=== PATIENT | male | born 1975 | race Caucasian/White ===

== ENCOUNTER 2016-09-08 12:01 | Emergency (ER) | payer SELFPAY ==
[~2016-09-08] VITALS: Ht 190.5 cm; Wt 130.0 kg
[~2016-09-08 12:01] MED LIST: IBUP800T23 PO; PERC5TAB12 PO; ROBA750T3 PO
[2016-09-08 12:07] VITALS: BP 148/100; PULSE 94; RESP 18; TEMP 97.6; O2SAT 96
--- NOTE | 2016-09-08 12:33 | PD ---
HPI Chief Complaint: Headache Time Seen by Provider: 12:21 Travel History International Travel<30 days: No Contact w/Intl Traveler<30days: No Traveled to known affect area: No History of Present Illness HPI This patient complains of headache. He does have history of migraines. He says he had a migraine about a week ago but that seems to largely resolved. His chief complaint today is pain that's on the left side of his head above the ear. It's really centered around the left mastoid area. No injury or trauma. No fever or vomiting. No neurologic complaint beyond headache. Does not feel like his typical migraine. No neck pain. No alleviating factors. Duration 3 days PFSH Past Medical History Diminished Hearing: No Past Surgical History Oral Surgery: Yes (WISDOM TEETH REMOVED MAY 07, 2006) Social History Alcohol Use: Yes (OCCAS) Tobacco Use: Yes (1 PACK DAILY) Substance Use: No Allergies-Medications (Allergen,Severity, Reaction): Coded Allergies: No Known Allergies (Verified , 09/08/16) Reported Meds & Prescriptions Reported Meds & Active Scripts Active Reported Oxycodone-Acetaminophen 5-325 mg Tab 1 Tab PO Q6H PRN Review of Systems General / Constitutional: No: Fever Eyes: No: Visual changes HENT: Positive: Headaches Cardiovascular: No: Chest Pain or Discomfort Respiratory: No: Shortness of Breath Gastrointestinal: No: Abdominal Pain Genitourinary: No: Dysuria Musculoskeletal: No: Pain Skin: No Rash Neurologic: Positive: Headache, No: Weakness Psychiatric: No: Depression Endocrine: No: Polydipsia Hematologic/Lymphatic: No: Easy Bruising Physical Exam Narrative GENERAL: Well-nourished, well-developed patient in no apparent distress. SKIN: Focused skin assessment reveals no rash and nodules. Skin is Warm and dry. HEAD: Atraumatic. Normocephalic. No tenderness of the mastoid. No redness or fluctuance or scalp rash noted. Left TM and pinna normal EYES: Pupils equal and round. No scleral icterus. No injection or drainage. ENT: No nasal bleeding or discharge. Mucous membranes pink and moist. NECK: Trachea midline. No JVD. No midline tenderness or meningeal signs CARDIOVASCULAR: Regular rate and rhythm. No murmur appreciated. RESPIRATORY: No accessory muscle use. Clear to auscultation. Breath sounds equal bilaterally. GASTROINTESTINAL: Abdomen soft, non-tender, nondistended. Hepatic and splenic margins not palpable. MUSCULOSKELETAL: No obvious deformities. No clubbing. No cyanosis. No edema. NEUROLOGICAL: Awake and alert. No obvious cranial nerve deficits. Motor grossly within normal limits. Normal speech. PSYCHIATRIC: Appropriate mood and affect; insight and judgment normal. Data Data Last Documented VS Vital Signs Date Time Temp Pulse Resp B/P Pulse Ox O2 Delivery O2 Flow Rate FiO2 09/08/16 12:29 16 97 Room Air 09/08/16 12:07 97.6 94 148/[address] Brain W/O Iv Contrast(Rout) (09/08/16 ) [facility] Medical Decision Making Medical Screen Exam Complete: Yes Emergency Medical Condition: Yes Medical Record Reviewed: Yes Differential Diagnosis Differential diagnosis includes migraine, tension headache, cluster headache, meningitis. Narrative Course I have reviewed the patient's electronic medical record. 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 No meningeal signs. Doesn't patient is not consistent with subarachnoid hemorrhage or CVA. He has an atypical headache Brain CT is normal No evidence of mastoiditis either clinically or on CT Patient drove himself here and is planning to drive home I gave him Toradol injection Prescription for tramadol written He did try a left over hydrocodone that he had at home which did not do anything for his headache Diagnosis Primary Impression: Headache Qualified Code: R51 - Acute nonintractable headache, unspecified headache type Additional Instructions: The patient was warned about potential sedation for the medications they will receive on prescription. The patient was advised to follow up with their physician and return if they worsen. Med/Other Pt SpecificInfo: Prescription(s) given Disposition: 01 DISCHARGE HOME Condition: Stable Dharmesh Zuluaga MD Sep 08, 2016 12:33
[2016-09-08] MEDS ORDERED: OXYC1TAB63 PO (12:34)
[2016-09-08 13:00] VITALS: BP 149/91; PULSE 78; RESP 16; O2SAT 97
--- NOTE | 2016-09-08 13:18 | RADHPO ---
EXAM DATE/TIME: 09/08/2016 12:35 [facility] COMPARISON: No previous studies available for comparison. INDICATIONS : Left posterior head pain, RADIATION DOSE: 64.12 CTDIvol (mGy) MEDICAL HISTORY : hx of Migraines. SURGICAL HISTORY : ENCOUNTER: Initial ACUITY: 1 day PAIN SCALE: 9/10 LOCATION: Left cranial posterior TECH NOTE: TECHNIQUE: Multiple contiguous axial images were obtained of the head. Using automated exposure control and adj ustment of the mA and/or kV according to patient size, radiation dose was kept as low as reasonably a chievable to obtain optimal diagnostic quality images. FINDINGS: CEREBRUM: The ventricles are normal for age. No evidence of midline shift, mass lesion, hemorrhage or acute in farction. No extra-axial fluid collections are seen. POSTERIOR FOSSA: The cerebellum and brainstem are intact. The 4th ventricle is midline. The cerebellopontine angle i s unremarkable. EXTRACRANIAL: The visualized portion of the orbits is intact. SKULL: The calvaria is intact. No evidence of skull fracture. CONCLUSION: Normal examination. Amadeo Nails MD on September 08, 2016 at 13:16 Board Certified Radiologist. This report was verified electronically.
[2016-09-08] MEDS ORDERED: KETOROLAC TROMETHAMINE 60 MG/2 ML (IM) VIAL IM ONE (13:30)
[2016-09-08] MEDS ORDERED: TRAM50TA PO (13:33)
[2016-09-08 13:50] VITALS: BP 134/87
== END 2016-09-08 13:58 | disposition home or self-care (01) ==
LOC: PHED 12:01
DX: R51 Headache (principal); F17.200 Nicotine dependence, unspecified, uncomplicated
CPT/HCPCS: 70450; 96372; 99284; J1885